=== PATIENT | female | born 1965 | race Caucasian/White ===

== ENCOUNTER 2018-09-14 19:05 | Emergency (ER) | payer SELFPAY ==
[~2018-09-14] VITALS: Ht 160 cm; Wt 61.0 kg
[2018-09-14] MEDS ORDERED: IBUPROFEN 600MG TABLET PO ONE (19:45)
[2018-09-14 21:38] VITALS: BP 140/85
== END 2018-09-14 21:40 | disposition home or self-care (01) ==
LOC: ER 20:14
DX: S29.012A Strain of muscle and tendon of back wall of thorax, initial encounter (principal); S20.311A Abrasion of right front wall of thorax, initial encounter; V49.88XA Car occupant (driver) (passenger) injured in other specified transport accidents, initial encounter; Y93.89 Activity, other specified; Y92.89 Other specified places as the place of occurrence of the external cause; Y99.8 Other external cause status
CPT/HCPCS: 71045; 93005; 99283